=== PATIENT | female | born 1975 | race Native Hawaiian/Other Pacific Islander ===

== ENCOUNTER 2017-04-21 15:18 | Emergency (ER) | payer OTHER ==
[~2017-04-21] VITALS: Ht 180.3 cm; Wt 117.9 kg
[2017-04-21 15:34] VITALS: TEMP 98.7
[2017-04-21 16:31] LABS: PLATELET COUNT 351 K/uL (152-353)
[2017-04-21 16:44] LABS: POTASSIUM 3.6 mmol/L (3.6-5.2); SODIUM 139 mmol/L (136-145)
[2017-04-21 17:41] VITALS: BP 146/82
== END 2017-04-21 17:42 | disposition home or self-care (01) ==
LOC: ED 15:18
DX: N20.1 Calculus of ureter (principal)
CPT/HCPCS: 36415; 80053; 81000; 82150; 83690; 85027; 96365; 96374; 99284; J1885

== ENCOUNTER 2019-02-05 18:47 | Emergency (ER) | payer OTHER ==
[~2019-02-05] VITALS: Ht 170.2 cm; Wt 105.7 kg
[2019-02-05 20:17] LABS: PLATELET COUNT 327 K/uL (152-353)
[2019-02-05 20:31] LABS: POTASSIUM 4.5 mmol/L (3.6-5.2)
[2019-02-05 21:10] VITALS: BP 135/79; TEMP 98.3
== END 2019-02-05 21:10 | disposition home or self-care (01) ==
LOC: ED 18:47
PROVIDERS: Emergency Medicine
DX: N20.0 Calculus of kidney (principal)
CPT/HCPCS: 36415; 80053; 81000; 85027; 87086; 87088; 96360; 96375; 99284; J1885; J2405

== ENCOUNTER 2019-11-14 14:06 | Outpatient (CLI) | payer OTHER ==
[2019-11-15] MEDS ORDERED: LISI20TA31 PO (12:04)
[2019-11-15] MEDS ORDERED: CLARITIN10 MG PO (12:06)
[2019-11-15] MEDS ORDERED: UNITH DIRECT50 MCG PO (12:06)
== END 2019-11-14 14:09 | disposition short-term general hospital (02) ==
LOC: AMB 14:06
DX: R07.89 Other chest pain (principal); R06.02 Shortness of breath
CPT/HCPCS: A0425; A0427

== ENCOUNTER 2019-11-14 14:12 | Observation (INO) | payer OTHER ==
[2019-11-14] VITALS (10 sets, daily range): BP systolic 106–147; BP diastolic 63–103; TEMP 97.6–98.2; Ht 167.6 cm; Wt 132.1 kg
[~2019-11-14] VITALS: Ht 167.6 cm; Wt 132.1 kg
[2019-11-14 15:57] LABS: PLATELET COUNT 261 K/uL (152-353)
[2019-11-14 16:06] LABS: POTASSIUM 3.8 mmol/L (3.6-5.2); SODIUM 140 mmol/L (136-145)
--- NOTE | 2019-11-14 23:25 | NUR ---
NOTIFIED DR OROSCO AT ER,REGARDING ADMISSION ORDERS AND RECEIVED T.O. FOR CHEST PAIN PROTOCOL.
[2019-11-15] VITALS: BP 95/56; TEMP 97.4
[2019-11-15 01:19] LABS: PARTIAL THROMBOPLASTIN TIME 26.1 SECONDS (24.5-33.6)
[2019-11-15 04:00] VITALS: BP 110/80; TEMP 98.2
--- NOTE | 2019-11-15 05:27 | NUR ---
Patient was admitted with Chest Pain, tightness and ureterolithasis, and labs reveal CO2 elevated, alt and alb depressed, see labs in EMR for more detail. PMH of HTN, GERD, Diverticulosis, Anxiety, Depression and UTI and smokes 1 ppd. Height 5'6" or 66 " and IBW 130 +/-10% (117 to 143 lbs.) and kcal needs for IBW x 25 = 1500, x 30 = 1800, x 35 = 2200, x 40 = 2400, protein needs for IBW = x .8 to 1.5 = 47 to 89 grams per day and weight at 291.4 and fluids for weight x 25 to 30 = 3300 to 4000 ml per day++ d/t UTI as a PMR diagnosis; BMI = 46.96 and is higher than the highest stage of obesity and is 224% of IBW. Recommend: 1- Increase fluids as tolerated. 2- Cardiac NCS High Fiber as tolerated diet. 3- Educate on smoking to try and stop smoking.
[2019-11-15 08:49] VITALS: BP 128/83; TEMP 97.6
--- NOTE | 2019-11-15 10:00 | NUR ---
NO C/O CHEST PAIN OR TIGHTNESS EXPRESSED AT THIS TIME. RECENT 740AM LAB RESULTS INDICATE NO ABNORMALITIES IN CARDIAC ENZYMES. TELEMETRY INDICATES NORMAL SINUS RHYTHM. NAD NOTED. CALL LIGHT IN REACH.
[2019-11-15] MEDS ORDERED: LISI20TA31 PO (12:04)
[2019-11-15] MEDS ORDERED: UNITH DIRECT50 MCG PO (12:06)
[2019-11-15] MEDS ORDERED: CLARITIN10 MG PO (12:06)
--- NOTE | 2019-11-15 12:30 | NUR ---
MD AND PA OBSERVED RECENT LABS AND ECG RESULTS WITH NO ABNORMALITIES NOTED AT THIS TIME. NO C/O CHEST PAIN PER PATIENT. MD GAVE ORDERS TO DISCHARGE [facility] WITH F/U TO [facility] AND F/U WITH PCP Imtiaz APONTE IN A WEEK. PATIENT EDUCATED ON MEDICATION REGIMEN ANDUSES OF MEDS AND POSSIBLE SIDE EFFECTS ANDVOICES UNDERSTANDING. AT BEDSIDE TO TAKE HOME IN POV. PATIENT UNDERSTANDS DC EDUCATION.
--- NOTE | 2019-11-15 14:58 | NUR ---
PATIENT DISCHARGED AT NOTED TIME. RESIDENT VOICED UNDERSTANDING OF DISCHARGE INSTRUCTIONS AND MEDICATION EDUCATION. PATIENT INSTRUCTED TO F/U WITH PCP AND FINISH MOLDER WITHIN A WEEK OF DISCHARGE AND VOICED UNDERSTANDING. PATIENT LEFT FACILITY WITH FAMILY MEMBER IN POV IN STABLE CONDITION WITH NO C/O PAIN EXPRESSED.
== END 2019-11-15 14:57 | disposition home or self-care (01) ==
LOC: ED 14:13 → MED/SURG 16:55
PROVIDERS: ADMIT Emergency Medicine
DX: R07.89 Other chest pain (principal); R20.0 Anesthesia of skin; I10 Essential (primary) hypertension; K21.9 Gastro-esophageal reflux disease without esophagitis; K57.90 Diverticulosis of intestine, part unspecified, without perforation or abscess without bleeding; M41.80 Other forms of scoliosis, site unspecified; E03.8 Other specified hypothyroidism
CPT/HCPCS: 80053; 82550; 83735; 84484; 85027; 85610; 85730; 93005; 96365; 96374; 99220; 99284; G0378; J1650; J3490

== ENCOUNTER 2021-04-17 04:32 | Emergency (ER) | payer OTHER ==
[~2021-04-17] VITALS: Ht 167.6 cm; Wt 134.3 kg
[~2021-04-17 04:32] MED LIST: CLARITIN10 MG PO; LISI20TA31 PO; UNITH DIRECT50 MCG PO
[2021-04-17 04:35] VITALS: TEMP 98
[2021-04-17 05:15] LABS: PLATELET COUNT 260 K/uL (152-353)
[2021-04-17 05:37] LABS: POTASSIUM 4.2 mmol/L (3.6-5.2); SODIUM 140 mmol/L (136-145)
[2021-04-17 07:54] VITALS: BP 128/73
== END 2021-04-17 07:54 | disposition home or self-care (01) ==
LOC: ED 04:32
PROVIDERS: Family Medicine
DX: R07.89 Other chest pain (principal); K21.9 Gastro-esophageal reflux disease without esophagitis; I10 Essential (primary) hypertension; F17.210 Nicotine dependence, cigarettes, uncomplicated
CPT/HCPCS: 36415; 80053; 80307; 81000; 82550; 84484; 85027; 85610; 85730; 93005; 96374; 96375; 99284; J0360; J3490